=== PATIENT | male | born 1965 | race Caucasian/White ===

== ENCOUNTER 2023-06-22 07:55 | Day surgery (SDC) | payer OTHER ==
[2023-06-22] VITALS (660 sets, daily range): BP systolic 151–174; BP diastolic 75–100; PULSE 62–78; TEMP 97.9–99; O2SAT 78–100
[~2023-06-22] VITALS: Ht 175.3 cm; Wt 73.6 kg
[~2023-06-22 07:55] MED LIST: ASPIRIN E.C. 8181 MG PO; CARDI-OMEGA1000 MG PO; DIABETA 5MG5 MG/TAB PO; FARXIGA10 PO; GLUCOPHAGE1000 MG PO; LIPITOR20 MG PO; LOPRESSOR 225 MG/TAB PO; MEGAKRILL PO; MULTI VITAMINS1 TAB PO; PRINZIDE 12.5 M1 TA1 PO; PROAIR HFA0.09 MG/AC IH; PROBIOTIC-MAJOR PO; PROTONIX 40MG T40 MG PO; SINGULAIR 110 MG/TAB PO
[2023-06-22 08:55] LABS: MEAN CELL VOLUME 91 fl (80.0-100.0); MEAN CORPUSCULAR HGB CONC 30 g/dl (33.0-37.0); MEAN PLATELET VOLUME 10.2 fl (7.4-10.4); PLATELET COUNT 202 K/mm3 (130-400); RED BLOOD COUNT 3.27 M/mm3 (4.20-5.60); REDCELL DISTRIBUTION WIDTH-CV 14.2 % (11.5-14.5)
[2023-06-22 08:56] LABS: HEMATOCRIT 29.8 % (42.0-52.0); MEAN CORPUSCULAR HEMOGLOBIN 28 pg (27-31)
[2023-06-22 08:58] LABS: INR 1.3 (0.8-3.0); PROTHROMBIN TIME 13.6 SECONDS (9.7-12.8)
[2023-06-22] MEDS ORDERED: GLUCOTROL10 MG PO (08:59)
[2023-06-22] MEDS ORDERED: ZESTRIL 20MG TA20 MG PO (08:59)
[2023-06-22 09:00] LABS: PARTIAL THROMBOPLASTIN TIME 34.8 SECONDS (26.0-37.0)
[2023-06-22] MEDS ORDERED: TOPROL XL 25MG25 MG PO (09:00)
[2023-06-22] MEDS ORDERED: PROAIR HFA0.09 MG/AC IH (09:01)
[2023-06-22] MEDS ORDERED: LIPITOR 10MG10 MG PO (09:01)
[2023-06-22] MEDS ORDERED: IRON TABLETS325 MG PO (09:02)
[2023-06-22] MEDS ORDERED: LASIX 40MG TABL40 MG PO (09:02)
[2023-06-22 09:03] LABS: CALCIUM 8.5 mg/dL (8.4-10.2); CREATININE, serum 1.94 mg/dL (0.72-1.25); POTASSIUM 3.9 mmol/L (3.5-4.5)
--- NOTE | 2023-06-22 09:25 | NUR ---
IVF initiated at rate of 100 ml/hr due to GRF and creat results. PRABHAKAR Hagan with cardiology notified of results and will pass them to Dr Peralta.
--- NOTE | 2023-06-22 10:20 | NUR ---
See merge for all medication, assessment, intervention, and vital sign times. Dr. Peralta notified of patient's creatine and BUN prior to procedure.
--- NOTE | 2023-06-22 16:22 | NUR ---
PATIENT ARRIVED ON FLOOR AT 1215 FROM ADMINISTRATIVE OFFICER POST 5 STENT PLACEMENT. PATIENT IS ALERT, ORIENTED AND ON BIPAP FOR OXYGEN SUPPORT. VSS, DENIES PAIN. SITE IS SOFT WITH CLEAN, DRY, AND INTACT DRESSING.
--- NOTE | 2023-06-22 16:58 | NUR ---
PATIENT IS OFF OF BEDREST, FEMORAL SITE IS CLEAN, DRY, INTACT, WITHOUT PAIN. VSS
--- NOTE | 2023-06-22 17:09 | NUR ---
PATIENT IS OFF OF BEDREST OF 1614, NO COMPLIANTS OF PAIN/ OR SIGNS OF DRAINAGE AT THIS TIME. VSS.
--- NOTE | 2023-06-22 19:00 | NUR ---
PATIENT RESTING IN BED ON ROOM AIR. NO SIGNS OF ACUTE DISTRESS NOTED AT THIS TIME. RIGHT FEM SITE CHECKED. DRESSING IS CLEAN, DRY, AND INTACT. NO HEMATOMA ON RIGHT FEM SITE.
[2023-06-23] VITALS (813 sets, daily range): BP systolic 132–164; BP diastolic 71–88; PULSE 65–72; TEMP 97.7–97.9; O2SAT 88–100
--- NOTE | 2023-06-23 | NUR ---
PATIENT TO WEAR CPAP AT NIGHT DUE TO FLUID OVERLOAD DURING DAYTIME. PATIENT ON ROOM AIR PRIOR TO CPAP BEING APPLIED. PATIENT REFUSING CPAP AFTER WEARING FOR ONE HOUR. EDUCATED PATIENT REGARDING THE NEED TO WEAR THE CPAP AT NIGHT. PATIENT STATED HE WEARS A CPAP AT NIGHT AT HOME BUT JUST STARTED TO WEAR ONE 3 WEEKS AGO. AFTER EDUCATING PATIENT HE STILL REFUSES TO WEAR THE CPAP WHILE SLEEPING. PATIENT ON ROOM AIR WITH SATS IN THE MID 90'S.
[2023-06-23 04:54] LABS: BASO % 0.4 % (0.0-2.0); EOS # 0.1 K/mm3 (0.0-0.7); EOS % 1.1 % (0.0-4.0); GRAN # 5.2 K/mm3 (1.4-6.5); GRAN % 73.4 % (42.2-75.2); LYMPH # 1.2 K/mm3 (1.2-3.4); LYMPH % 16.5 % (20.0-51.0); MEAN CELL VOLUME 89 fl (80.0-100.0); MEAN CORPUSCULAR HGB CONC 32 g/dl (33.0-37.0); MEAN PLATELET VOLUME 10.5 fl (7.4-10.4); MONO # 0.6 K/mm3 (0.1-0.6); MONO % 8.3 % (1.7-9.3); PLATELET COUNT 203 K/mm3 (130-400); RED BLOOD COUNT 3.07 M/mm3 (4.20-5.60); REDCELL DISTRIBUTION WIDTH-CV 14.3 % (11.5-14.5)
[2023-06-23 05:00] LABS: HEMATOCRIT 27.3 % (42.0-52.0); HEMOGLOBIN 8.8 g/dl (13.5-18.0); MEAN CORPUSCULAR HEMOGLOBIN 29 pg (27-31)
[2023-06-23 05:19] LABS: CALCIUM 8.3 mg/dL (8.4-10.2); CREATININE, serum 1.98 mg/dL (0.72-1.25); POTASSIUM 3.6 mmol/L (3.5-4.5)
--- NOTE | 2023-06-23 09:59 | NUR ---
SW briefly reviewed pt's clinical record during rounds and noted pt received a cath. Pt scheduled to go later today. SW met with pt for a brief intake assessment. 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 Pt states his primary coordinator is Dr. Jake Gamez and he can be reached @ # [phone]. Pt states he fills his prescriptions thru [facility] and his HCPOA is his friend, Jen Morales. Pt denies a need for outpt services, states his fianceEv will transport him home. No other concerns noted.
[2023-06-23] MEDS ORDERED: TOPROL XL 50MG50 MG PO (10:45)
[2023-06-23] MEDS ORDERED: LIPITOR 80MG80 MG PO (10:45)
[2023-06-23] MEDS ORDERED: EFFIENT10 MG PO (10:45)
[2023-06-23] MEDS ORDERED: IMDUR 30MG30 MG/TAB PO (10:45)
--- NOTE | 2023-06-23 12:21 | NUR ---
Discharge instructions were provided to patient. Reviewed new medications and follow up appoinments. Reivewed heart cath discharge instructions. Pt verbalized understanding. Reminded pt to stop by Dr. Burnham office to bean picker some medications and address provided. Pt states ride will be here at 1400.
--- NOTE | 2023-06-23 14:23 | NUR ---
IV discontinued. Written script given to patient for Effient d/t preferred pharmacy being out. Pt escorted out at 1423.
--- NOTE | 2023-06-23 14:46 | NUR ---
Cardiac Rehab Note: (late entry) Met with patient at bedside to discuss outpatient cardiac rehab and heart failure education. Heart Failure: patient already had Heart Failure booklet on bedside table-reviewed heart failure signs and symptoms and when to call the doctor. Reviewed daily weight monitoring, sodium and fluid restrictions, medication compliance, and follow up attnedance. Patient verbalized understanding. 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 Encouraged patient to seek out assistance from case management in hospital and at cardiac rehab. Other risk factors discussed: hypertension, hyperlipidemia, low physical energy, and diabetes. Patient wishes to attend cardiac rehab in [place]. Referral faxed.
== END 2023-06-23 14:23 | disposition home or self-care (01) ==
LOC: COL.CAR 07:55 → ICU 14:39 → COL.CAR 06-23 08:30
PROVIDERS: Internal Medicine Cardiovascular Disease
DX: I25.118 Atherosclerotic heart disease of native coronary artery with other forms of angina pectoris (principal); I10 Essential (primary) hypertension; I25.5 Ischemic cardiomyopathy; E11.9 Type 2 diabetes mellitus without complications; G47.33 Obstructive sleep apnea (adult) (pediatric); J45.909 Unspecified asthma, uncomplicated; E78.2 Mixed hyperlipidemia; R09.82 Postnasal drip; Z28.310 Unvaccinated for COVID-19; E44.0 Moderate protein-calorie malnutrition; R63.4 Abnormal weight loss; E66.9 Obesity, unspecified; Z68.26 Body mass index [BMI] 26.0-26.9, adult; Z95.1 Presence of aortocoronary bypass graft; Z77.22 Contact with and (suspected) exposure to environmental tobacco smoke (acute) (chronic); Z77.090 Contact with and (suspected) exposure to asbestos; Z79.82 Long term (current) use of aspirin; Z79.899 Other long term (current) drug therapy
CPT/HCPCS: OP; C1725; C1760; C1769; C1874; C1887; C1894; C9604; J0583; J1644; J1940; J2250; J3010; Q9967